=== PATIENT | female | born 1980 | race Caucasian/White ===

== ENCOUNTER 2016-12-27 07:42 | Outpatient (CLI) | payer BC | END 2016-12-27 20:42 | disposition home or self-care (01) | LOC: SMA 07:42 | DX: N64.4 Mastodynia (principal); Z80.3 Family history of malignant neoplasm of breast; Z85.41 Personal history of malignant neoplasm of cervix uteri | CPT/HCPCS: 76604; 76641; G0204; G0206 ==

== ENCOUNTER 2018-01-03 08:48 | Outpatient (CLI) | payer BC | END 2018-01-03 19:55 | disposition home or self-care (01) | LOC: SUS 08:48 | DX: N63.20 Unspecified lump in the left breast, unspecified quadrant (principal) | CPT/HCPCS: 76641 ==

== ENCOUNTER 2018-04-01 12:38 | Outpatient (CLI) | payer BC | END 2018-04-01 19:56 | disposition home or self-care (01) | LOC: SMA 12:38 | PROVIDERS: ATTEND Family Medicine | DX: N63.20 Unspecified lump in the left breast, unspecified quadrant (principal); N63.10 Unspecified lump in the right breast, unspecified quadrant | CPT/HCPCS: 76641; 77066 ==